=== PATIENT | female | born 1960 | race African-American/Black ===

== ENCOUNTER 2016-06-03 07:33 | Emergency (ER) | payer OTHER ==
--- NOTE | ~2016-06-03 | EKG ---
PATIENT: JANAY PAGAN UNIT #: [id number] Ventricular Rate: 74 BPM Atrial Rate: 74 BPM P-R Interval: 162 ms QRS Duration: 84 ms Q-T Interval: 416 ms QTC Calculation(Bezet): 461 ms P [place]: 26 degrees Calculated R [place]: 10 degrees Calculated T [place]: 49 degrees Diagnosis Line: Normal sinus rhythm Diagnosis Line: Nonspecific T wave abnormality Diagnosis Line: Prolonged QT Diagnosis Line: Abnormal ECG Diagnosis Line: When compared with ECG of 10-JAN-2016 04:56, Diagnosis Line: Nonspecific T wave abnormality, worse in Anterior Diagnosis Line: leads Diagnosis Line: Confirmed by TIGIST GAMEZ MD ([id number]) on 06/03/2016 Diagnosis Line: 6:04:04 PM INTERPRETING MD: FRANCO VENEGAS
--- NOTE | ~2016-06-03 | CR63 ---
[facility]. [facility] A Service of [facility] & [facility] RADIOLOGY TEXT RESULTS PATIENT: JANAY PAGAN LOCATION: SED : 56 UNIT #: [id number] AGE: [address]: Fermin Thapa MD SEX: F ORDER DR: [id number] [place] [id number] E MR#: [id number] Acc #: [id number] NAME: JANAY PAGAN : 1960 SEX: F STUDY DATE/TIME: 06/03/2016 8:11 UNIT: SED ROOM: STUDY DESCRIPTION: CR Chest 2 View Attending Physician: Fermin Thapa M.D. Ordering Physician: Fermin Thapa M.D. Primary Care Physician: Micha Miller M.D. MEDICAL IMAGING REPORT This report is preliminary unless electronic signature is present. EXAM Chest x-ray 06/03/2016 INDICATION Difficulty breathing with cough and shortness of air for 2 weeks. FINDINGS 2 views of the chest are compared with 05/29/2016. Dextroscoliosis in the spine is unchanged. The cardiac and mediastinal contours are within normal limits. The lungs are clear. No pneumothorax. IMPRESSION Scoliosis. No active disease. Dictated by... Fermin Urias Jr., M.D. THIS IS AN ELECTRONICALLY VERIFIED REPORT Fermin Urias Jr., M.D. at 06/03/2016 12:30 PM TAYLER/eduardo TD: 06/03/2016 11:08 JOB #: [id number] MEDICAL IMAGING REPORT
[~2016-06-03 07:33] MED LIST: ALBUTEROL MININEB; ALBUTEROL17 GM; ALBUTEROL17 GM INH; AMLODIPINE BESY10 MG; BENTYL20 MG PO; BP MED; CARAFATE; DICYCLOMINE HCL20 MG PO; EFFEXOR-XR37.5 MG PO; FLEXERIL10 M1 PO; FLEXERIL10 MG PO; HCTZ; HCTZ PO; HYDROCHLOROTH12.5 M1 PO; IBUPROFEN600 MG PO; LASIX PO; LOMOTIL TABLET1 TAB PO; LORTAB 10-5001 EACH PO; LORTAB 5-325 M1 EACH PO; MEDROL4 MG/DOSE- PO; MICARDIS; MICARDIS PO; MICRO-K10 ME2 PO; MICRO-K10 MEQ; MOTRIN600 M1 PO; NORCO1 TAB 10/3 PO; NORFLEX100 M1 PO; NORVASC PO; ONDANSETRON HCL4 M1 PO; PERCOCET 5-3251 TAB PO; PHENERGAN25 MG PO; PREDNISONE PO; PREDNISONE10 MG PO; PRILOSEC; PRILOSEC20 MG PO; PRILOSEC40 MG PO; PROTONIX PO; SINGULAIR; ST. JOSEPH ASPI81 M3 PO; TYLENOL #3 PO; VALTREX; VALTREX PO; VICODIN PO; VOLTAREN75 MG PO; ZANAFLEX4 M1 PO; ZITHROMAX PO; ZITHROMAX1 G/PKT PO; ZOFRAN ODT4 MG PO; ZOFRAN PO; ZOFRANODT PO; ZOFRANODT SL
[2016-06-03 08:07] LABS: BASOPHIL# 0.1 X10e3 (0-0.3); BASOPHIL% 1.3 % (0-2.5); EOSINOPHIL# 0.4 X10e3 (0-0.7); EOSINOPHIL% 3.5 % (0.0-7.0); LYMPHOCYTE# 3.8 X10e3 (1.0-3.5); LYMPHOCYTE% 35.2 % (17.0-45.0); MEAN CELL VOLUME 86.3 FL (83-96); MEAN CORPUSCULAR HEMOGLOBIN 28.7 PG (28-34); MEAN CORPUSCULAR HGB CONC 33.3 g/dL (30-36); MEAN PLATELET VOLUME 7.1 FL (6.5-11.5); MONOCYTE# 0.6 X10e3 (0-1.0); MONOCYTE% 5.4 % (3.0-12.0); NEUTROPHIL# 5.9 X10e3 (1.5-7.1); NEUTROPHIL% 54.6 % (40-75); PLATELET COUNT 272 X10e3 (140-420); RED BLOOD COUNT 4.86 X10e (3.90-5.30); RED CELL DISTRIBUTION WIDTH 14.3 % (11.0-15.5); WHITE BLOOD COUNT 10.8 X10e3 (4.0-10.5)
[2016-06-03 08:14] LABS: DIFF IND NO
[2016-06-03 08:22] LABS: POC - CKMB 2.5 ng/mL (0.0-7.9); POC - TROPONIN <0.05 ng/mL (<=0.05)
[2016-06-03 08:23] LABS: ALBUMIN SERUM 4.2 g/dL (3.5-5.0); ALKALINE PHOSPHATASE 89 U/L (32-92); ALT (SGPT) 19 U/L (10-40); AST (SGOT) 22 U/L (10-42); BILIRUBIN, DIRECT 0.1 mg/dL (0.0-0.2); BILIRUBIN,INDIRECT 0.6 mg/dL (0.0-0.9); BILIRUBIN,TOTAL 0.7 mg/dL (0.2-2.0); BLOOD UREA NITROGEN 13 mg/dL (9-23); BUN/CREATININE RATIO 16.25; CALCIUM SERUM 8.8 mg/dL (8.4-10.2); CARBON DIOXIDE 23 mmol/L (22-31); CHLORIDE 103 mmol/L (100-111); CREATININE SERUM 0.8 mg/dL (0.6-1.4); GLOM FILT RATE Estimated ABOVE60 mL/min (>60); GLUCOSE FASTING 118 mg/dL (70-110); POTASSIUM 3.3 mmol/L (3.5-5.1); PROTEIN TOTAL SERUM 7.6 g/dL (6.0-8.3); SODIUM 136 mmol/L (135-145)
[2016-06-03] MEDS ORDERED: LISINOPRIL-HCTZ1 T15 PO (09:25)
[2016-06-03] MEDS ORDERED: CLARITIN10 M2 PO (09:25)
[2016-06-03] MEDS ORDERED: ASPIRIN81 MG PO (09:25)
[2016-06-03] MEDS ORDERED: DICLOFENAC (09:26)
== END 2016-06-03 09:45 | disposition home or self-care (01) ==
LOC: SED 07:33
PROVIDERS: Emergency Medicine
DX: J45.901 Unspecified asthma with (acute) exacerbation (principal); I50.9 Heart failure, unspecified
CPT/HCPCS: 36415; 71020; 80048; 80076; 82553; 83874; 83880; 84484; 85025; 93005; 94640; 99283

== ENCOUNTER 2016-07-11 20:30 | Emergency (ER) | payer OTHER ==
[~2016-07-11 20:30] MED LIST changes: +ASPIRIN81 MG PO; +CLARITIN10 M2 PO; +DICLOFENAC; +LISINOPRIL-HCTZ1 T15 PO
== END 2016-07-11 21:21 | disposition home or self-care (01) ==
LOC: SED 20:30
DX: K08.89 Other specified disorders of teeth and supporting structures (principal); I12.9 Hypertensive chronic kidney disease with stage 1 through stage 4 chronic kidney disease, or unspecified chronic kidney disease; N18.9 Chronic kidney disease, unspecified; Z88.0 Allergy status to penicillin; Z88.5 Allergy status to narcotic agent; Z79.82 Long term (current) use of aspirin; Z79.899 Other long term (current) drug therapy
CPT/HCPCS: 99283

== ENCOUNTER 2016-08-10 15:14 | Emergency (ER) | payer OTHER ==
[2016-08-10 15:00] LABS: BASOPHIL# 0.1 X10e3 (0-0.3); BASOPHIL% 0.7 % (0-2.5); EOSINOPHIL# 0.4 X10e3 (0-0.7); EOSINOPHIL% 4.3 % (0.0-7.0); HEMATOCRIT 43.2 % (35.0-45.0); HEMOGLOBIN 14.4 gm/dL (12.0-16.0); LYMPHOCYTE# 2.9 X10e3 (1.0-3.5); LYMPHOCYTE% 30.2 % (17.0-45.0); MEAN CELL VOLUME 85.5 FL (83-96); MEAN CORPUSCULAR HEMOGLOBIN 28.4 PG (28-34); MEAN CORPUSCULAR HGB CONC 33.2 g/dL (30-36); MEAN PLATELET VOLUME 7.4 FL (6.5-11.5); MONOCYTE# 0.5 X10e3 (0-1.0); MONOCYTE% 5.1 % (3.0-12.0); NEUTROPHIL# 5.8 X10e3 (1.5-7.1); NEUTROPHIL% 59.7 % (40-75); PLATELET COUNT 291 X10e3 (140-420); RED BLOOD COUNT 5.05 X10e (3.90-5.30); RED CELL DISTRIBUTION WIDTH 14.7 % (11.0-15.5); WHITE BLOOD COUNT 9.7 X10e3 (4.0-10.5)
[2016-08-10 15:05] LABS: DIFF IND NO
[2016-08-10 15:17] LABS: CREATININE SERUM 0.8 mg/dL (0.6-1.4); GLOM FILT RATE Estimated 94.3 mL/min (>60)
[2016-08-10 15:22] LABS: CALCIUM SERUM 8.9 mg/dL (8.4-10.2)
== END 2016-08-10 16:03 | disposition home or self-care (01) ==
LOC: SED 15:14
PROVIDERS: Emergency Medicine
DX: J02.9 Acute pharyngitis, unspecified (principal); J35.1 Hypertrophy of tonsils; R13.10 Dysphagia, unspecified; Z88.0 Allergy status to penicillin; Z88.5 Allergy status to narcotic agent; Z88.1 Allergy status to other antibiotic agents; Z79.899 Other long term (current) drug therapy; Z79.82 Long term (current) use of aspirin
CPT/HCPCS: 36415; 80048; 85025; 87651; 99283

== ENCOUNTER 2016-09-27 18:22 | Emergency (ER) | payer OTHER ==
--- NOTE | ~2016-09-27 | CR72 ---
[facility]. [facility] A Service of [facility] & [facility] RADIOLOGY TEXT RESULTS PATIENT: JANAY PAGAN LOCATION: SED : 56 UNIT #: [id number] AGE: [address]: TAMMIE GARCIA SEX: F ORDER DR: [id number] [place] [id number] E MR#: [id number] Acc #: [id number] NAME: JANAY PAGAN : 1960 SEX: F STUDY DATE/TIME: 09/27/2016 19:11 UNIT: SED ROOM: STUDY DESCRIPTION: CR Chest Single View Portable Attending Physician: Tammie Garcia Ordering Physician: Physician Non-Staff Primary Care Physician: Micha Miller M.D. MEDICAL IMAGING REPORT This report is preliminary unless electronic signature is present. EXAM Portable chest HISTORY Chest pain and left arm pain and shortness of air since yesterday. FINDINGS Mild cardiac enlargement. Normal pulmonary vascularity. Mild right lower thoracic curve. IMPRESSION No acute findings. Mild cardiac enlargement. Dictated by... Kevin Galo M.D. THIS IS AN ELECTRONICALLY VERIFIED REPORT Kevin Galo M.D. at 10/05/2016 10:35 PM ANTONIA/gosia TD: 09/28/2016 03:59 JOB #: [id number] MEDICAL IMAGING REPORT Page 1 of 1
--- NOTE | ~2016-09-27 | EKG ---
PATIENT: JANAY PAGAN UNIT #: [id number] Ventricular Rate: 71 BPM Atrial Rate: 71 BPM P-R Interval: 142 ms QRS Duration: 82 ms Q-T Interval: 422 ms QTC Calculation(Bezet): 458 ms P [place]: 22 degrees Calculated R [place]: 9 degrees Calculated T [place]: 42 degrees Diagnosis Line: Normal sinus rhythm Diagnosis Line: Nonspecific T wave abnormality Diagnosis Line: Abnormal ECG Diagnosis Line: When compared with ECG of 03-JUN-2016 07:01, Diagnosis Line: No significant change was found Diagnosis Line: Confirmed by ELLIE FERRO MD ([id number]) on Diagnosis Line: 10/01/2016 8:35:56 AM INTERPRETING MD: PILLO VENEGAS
[2016-09-27 19:09] LABS: PROTHROMBIN TIME (PATIENT) 11.7 SECONDS (9.5-12.4)
[2016-09-27 19:10] LABS: BASOPHIL# 0.1 X10e3 (0-0.3); BASOPHIL% 1.2 % (0-2.5); DIFF IND NO; EOSINOPHIL# 0.3 X10e3 (0-0.7); EOSINOPHIL% 2.8 % (0.0-7.0); HEMATOCRIT 43.9 % (35.0-45.0); HEMOGLOBIN 14.8 gm/dL (12.0-16.0); LYMPHOCYTE# 3.9 X10e3 (1.0-3.5); LYMPHOCYTE% 34.1 % (17.0-45.0); MEAN CELL VOLUME 84.9 FL (83-96); MEAN CORPUSCULAR HEMOGLOBIN 28.5 PG (28-34); MEAN CORPUSCULAR HGB CONC 33.6 g/dL (30-36); MEAN PLATELET VOLUME 7.6 FL (6.5-11.5); MONOCYTE# 0.8 X10e3 (0-1.0); MONOCYTE% 6.7 % (3.0-12.0); NEUTROPHIL# 6.3 X10e3 (1.5-7.1); NEUTROPHIL% 55.2 % (40-75); PLATELET COUNT 327 X10e3 (140-420); RED BLOOD COUNT 5.17 X10e (3.90-5.30); RED CELL DISTRIBUTION WIDTH 15.3 % (11.0-15.5); WHITE BLOOD COUNT 11.3 X10e3 (4.0-10.5)
[2016-09-27 19:12] LABS: POC - CKMB <1.0 ng/mL (0.0-7.9); POC - TROPONIN <0.05 ng/mL (<=0.05)
[2016-09-27 19:16] LABS: ALBUMIN SERUM 4.2 g/dL (3.5-5.0); BILIRUBIN,TOTAL 0.3 mg/dL (0.2-2.0); CALCIUM SERUM 8.6 mg/dL (8.4-10.2); CREATININE SERUM 0.7 mg/dL (0.6-1.4); GLOM FILT RATE Estimated 110.7 mL/min (>60); POTASSIUM 3.7 mmol/L (3.5-5.1); PROTEIN TOTAL SERUM 7.8 g/dL (6.0-8.3)
[2016-09-27 21:42] LABS: POC - CKMB <1.0 ng/mL (0.0-7.9); POC - TROPONIN <0.05 ng/mL (<=0.05)
== END 2016-09-27 23:54 ==
LOC: SED 18:22
PROVIDERS: Physician Assistant
DX: I16.0 Hypertensive urgency (principal); I11.0 Hypertensive heart disease with heart failure; K21.9 Gastro-esophageal reflux disease without esophagitis; J45.909 Unspecified asthma, uncomplicated; Z90.49 Acquired absence of other specified parts of digestive tract; Z88.1 Allergy status to other antibiotic agents; Z88.0 Allergy status to penicillin; Z88.8 Allergy status to other drugs, medicaments and biological substances
CPT/HCPCS: 71010; 80053; 82553; 84484; 85025; 85610; 93005; 96374; 96375; 96376; 99285; J2270; J2405

== ENCOUNTER 2016-11-18 13:12 | Emergency (ER) | payer OTHER ==
--- NOTE | ~2016-11-18 | CT4 ---
[facility] A Service of [facility] & [facility] RADIOLOGY TEXT RESULTS PATIENT: JANAY PAGAN LOCATION: SED : 56 UNIT #: [id number] AGE: [address]: Stephanie Reyna MD SEX: F ORDER DR: [id number] [address] [address] [id number] E MR#: [id number] Acc #: [id number] NAME: JANAY PAGAN : 1960 SEX: F STUDY DATE/TIME: 11/18/2016 14:19 UNIT: SED ROOM: STUDY DESCRIPTION: CT Abd and Pelv Wo Cont Attending Physician: Stephanie Reyna M.D. Ordering Physician: Stephanie Reyna M.D. Primary Care Physician: Micha Miller M.D. MEDICAL IMAGING REPORT This report is preliminary unless electronic signature is present. EXAM CT abdomen and pelvis HISTORY Right flank pain, difficulty urinating, started 05:00 a.m. today. Asthma, acid reflux, hypertension, hysterectomy, hernia repair, gallbladder. TECHNIQUE CT of the abdomen and pelvis was performed without administration of oral or intravascular contrast. Comparison 01/10/2016. This CT exam was performed with one or more of the following radiation dose reduction techniques: automatic exposure control, adjustment of mA and/or kV according to patient size, and iterative reconstruction. FINDINGS Stable mild cardiac enlargement. Dependent atelectasis at the lung bases. Segment 2 left hepatic lobe cyst unchanged. Liver mildly enlarged at about 20.8 cm in craniocaudal extent. Status post cholecystectomy. No biliary obstruction. Spleen, pancreas, small accessory spleen, adrenal glands unremarkable. No hydronephrosis or nephrolithiasis. No perinephric inflammatory change. Small cyst upper pole right kidney unchanged. CT Pelvis: No inguinal adenopathy. Status post hysterectomy. No suspicious adnexal findings. Urinary bladder contains Mann catheter. No perivesical inflammatory change. No fluid collection in the pelvis. No abdominal or pelvic adenopathy. Distal esophagus and stomach unremarkable. Small bowel unremarkable. Appendix normal. Colon shows uncomplicated sigmoid diverticulosis. The unopacified vascular structures show scattered atherosclerotic arterial calcifications. Bony structures STS. [facility] A Service of [facility] & [facility] RADIOLOGY TEXT RESULTS PATIENT: JANAY PAGAN LOCATION: SED : 56 UNIT #: [id number] AGE: [address]: Stephanie Reyna MD SEX: F ORDER DR: show degenerative change in the spine. No acute-appearing bony abnormality. IMPRESSION 1. No acute renal findings. No calculi or obstruction and no perinephric inflammatory change. Ureters and urinary bladder show no acute abnormality. There is a Mann catheter in the bladder. 2. Stable mild hepatic enlargement. Stable left hepatic lobe cyst. 3. Postoperative changes of cholecystectomy and hysterectomy. 4. Uncomplicated sigmoid diverticulosis. Remainder of alimentary canal unremarkable. 5. Stable mild cardiac enlargement. 6. See remainder of findings in body of report above. Dictated by... Alber Brooks M.D. THIS IS AN ELECTRONICALLY VERIFIED REPORT Alber Brooks M.D. at 11/19/2016 6:25 PM Galileo TD: 11/18/2016 19:39 JOB #: [id number] MEDICAL IMAGING REPORT Page 1 of 1
[2016-11-18] MEDS ORDERED: HYZAAR (13:17)
[2016-11-18] MEDS ORDERED: VALTREX PO (13:17)
[2016-11-18 14:38] LABS: URINE SOURCE CLEAN CATCH
[2016-11-18 14:40] LABS: URINE APPEARANCE SL CLOUDY; URINE BILIRUBIN NEG (NEG); URINE BLOOD 3+ (NEG); URINE COLOR YELLOW; URINE GLUCOSE NEG (NORM); URINE KETONE NEG (NEG); URINE LEUKOCYTE ESTERASE NEG (NEG); URINE NITRATE NEG (NEG); URINE PROTEIN TRACE (NEG)
[2016-11-18 14:45] LABS: MICRO INDICATED? YES
[2016-11-18 14:45] LABS: BASOPHIL# 0.1 X10e3 (0-0.3); DIFF IND NO; EOSINOPHIL# 0.2 X10e3 (0-0.7); EOSINOPHIL% 2.5 % (0.0-7.0); HEMATOCRIT 42.3 % (35.0-45.0); HEMOGLOBIN 14.2 gm/dL (12.0-16.0); LYMPHOCYTE# 1.6 X10e3 (1.0-3.5); MEAN CELL VOLUME 85.5 FL (83-96); MEAN CORPUSCULAR HEMOGLOBIN 28.6 PG (28-34); MEAN CORPUSCULAR HGB CONC 33.5 g/dL (30-36); MEAN PLATELET VOLUME 7.2 FL (6.5-11.5); MONOCYTE# 0.8 X10e3 (0-1.0); MONOCYTE% 9.1 % (3.0-12.0); NEUTROPHIL# 6.1 X10e3 (1.5-7.1); NEUTROPHIL% 69.4 % (40-75); PLATELET COUNT 265 X10e3 (140-420); RED BLOOD COUNT 4.95 X10e (3.90-5.30); RED CELL DISTRIBUTION WIDTH 14.8 % (11.0-15.5); WHITE BLOOD COUNT 8.8 X10e3 (4.0-10.5)
[2016-11-18 14:47] LABS: CULTURE INDICATED? NO; URINE BACTERIA NEG (NEG); URINE RBC 200-300 /[HPF] (0-2); URINE WBC 0-2 /[HPF] (0-5)
[2016-11-18 15:03] LABS: BUN/CREATININE RATIO 22.5; CALCIUM SERUM 8.8 mg/dL (8.4-10.2); CREATININE SERUM 0.8 mg/dL (0.6-1.4); GLOM FILT RATE Estimated 94.3 mL/min (>60); POTASSIUM 3.7 mmol/L (3.5-5.1)
[2016-11-19] MEDS ORDERED: FLOMAX0.4 M1 PO (09:26)
[2016-11-19] MEDS ORDERED: HYDROCODON-ACE1 EAC9 PO (09:26)
[2016-11-19] MEDS ORDERED: ZOFRAN ODT4 MG PO (09:26)
== END 2016-11-18 15:45 | disposition home or self-care (01) ==
LOC: SED 13:12
PROVIDERS: Student in an Organized Health Care Education/Training Program
DX: R33.9 Retention of urine, unspecified (principal); K21.9 Gastro-esophageal reflux disease without esophagitis; J45.909 Unspecified asthma, uncomplicated; F17.200 Nicotine dependence, unspecified, uncomplicated; I10 Essential (primary) hypertension; Z88.0 Allergy status to penicillin; Z88.5 Allergy status to narcotic agent; Z88.1 Allergy status to other antibiotic agents; Z79.899 Other long term (current) drug therapy
CPT/HCPCS: 36415; 51702; 74176; 80048; 81003; 85025; 99284

== ENCOUNTER 2016-11-19 07:12 | Emergency (ER) | payer OTHER ==
--- NOTE | ~2016-11-19 | CT4 ---
[facility] A Service of [facility] RADIOLOGY TEXT RESULTS PATIENT: JANAY PAGAN LOCATION: SED : 56 UNIT #: [id number] AGE: [address]: Brian Leiva MD SEX: F ORDER DR: [id number] [place] [id number] E MR#: [id number] Acc #: [id number] NAME: JANAY PAGAN : 1960 SEX: F STUDY DATE/TIME: 11/19/2016 8:43 UNIT: SED ROOM: STUDY DESCRIPTION: CT Abd and Pelv Wo Cont Attending Physician: Brian Leiva M.D. Ordering Physician: Brian Leiva M.D. Primary Care Physician: Micha Miller M.D. MEDICAL IMAGING REPORT This report is preliminary unless electronic signature is present. EXAM Abdomen and pelvis CT without contrast HISTORY Right-sided renal colic and difficulty urinating beginning yesterday. TECHNIQUE Axial images were obtained without contrast and compared with a previous scan from 1 day earlier. FINDINGS Since the previous examination hydronephrosis has developed on the right. There is moderate hydronephrosis with dilated right ureter. There is a stone at the right ureterovesical junction that measures 6 mm in diameter causing the obstruction. The stone has moved distally several centimeters since the previous exam. No acute or inflammatory changes are seen elsewhere. Diverticulosis is noted in the colon without evidence of diverticulitis. In the upper abdomen the liver, spleen and pancreas are unremarkable. There is a small simple cyst in the liver in the left lobe. There is a small right renal cyst. IMPRESSION 6 mm obstructing stone at the right ureterovesical junction. There is moderate hydronephrosis which is new since the previous scan yesterday. Dictated by... Fermin Nettles M.D. THIS IS AN ELECTRONICALLY VERIFIED REPORT Fermin Nettles M.D. at 11/19/2016 4:35 PM [facility] A Service of [facility] RADIOLOGY TEXT RESULTS PATIENT: JANAY PAGAN LOCATION: [facility] : 56 UNIT #: [id number] AGE: [address]: Brian Leiva MD SEX: F ORDER DR: Quiana TD: 11/19/2016 12:28 JOB #: [id number] MEDICAL IMAGING REPORT Page 1 of 1
[~2016-11-19 07:12] MED LIST changes: +HYZAAR
[2016-11-19 08:01] LABS: BASOPHIL# 0.1 X10e3 (0-0.3); BASOPHIL% 0.9 % (0-2.5); EOSINOPHIL# 0.3 X10e3 (0-0.7); EOSINOPHIL% 3.1 % (0.0-7.0); HEMATOCRIT 44.3 % (35.0-45.0); HEMOGLOBIN 14.8 gm/dL (12.0-16.0); LYMPHOCYTE# 3.8 X10e3 (1.0-3.5); LYMPHOCYTE% 43.9 % (17.0-45.0); MEAN CELL VOLUME 84.6 FL (83-96); MEAN CORPUSCULAR HEMOGLOBIN 28.3 PG (28-34); MEAN CORPUSCULAR HGB CONC 33.4 g/dL (30-36); MEAN PLATELET VOLUME 7.2 FL (6.5-11.5); NEUTROPHIL# 3.5 X10e3 (1.5-7.1); NEUTROPHIL% 40.1 % (40-75); PLATELET COUNT 289 X10e3 (140-420); RED BLOOD COUNT 5.23 X10e (3.90-5.30); RED CELL DISTRIBUTION WIDTH 14.9 % (11.0-15.5); WHITE BLOOD COUNT 8.7 X10e3 (4.0-10.5)
[2016-11-19 08:03] LABS: DIFF IND NO
[2016-11-19 08:17] LABS: ALBUMIN SERUM 4.5 g/dL (3.5-5.0); BILIRUBIN, DIRECT 0.1 mg/dL (0.0-0.2); BILIRUBIN,INDIRECT 0.4 mg/dL (0.0-0.9); BILIRUBIN,TOTAL 0.5 mg/dL (0.2-2.0); CALCIUM SERUM 8.6 mg/dL (8.4-10.2); CREATININE SERUM 0.9 mg/dL (0.6-1.4); GLOM FILT RATE Estimated 81.7 mL/min (>60); POTASSIUM 3.6 mmol/L (3.5-5.1)
[2016-11-19] MEDS ORDERED: FLOMAX0.4 M1 PO (09:26)
[2016-11-19] MEDS ORDERED: ZOFRAN ODT4 MG PO (09:26)
[2016-11-19] MEDS ORDERED: HYDROCODON-ACE1 EAC9 PO (09:26)
== END 2016-11-19 09:41 | disposition home or self-care (01) ==
LOC: SED 07:12
PROVIDERS: Emergency Medicine
DX: N13.2 Hydronephrosis with renal and ureteral calculous obstruction (principal); R03.0 Elevated blood-pressure reading, without diagnosis of hypertension; Z79.82 Long term (current) use of aspirin; Z79.899 Other long term (current) drug therapy; Z88.0 Allergy status to penicillin; Z88.5 Allergy status to narcotic agent; Z88.8 Allergy status to other drugs, medicaments and biological substances
CPT/HCPCS: 36415; 74176; 80048; 80076; 85025; 96361; 96374; 96375; 96376; 99284; J1170; J1885; J2405